=== PATIENT | female | born 1985 | race Caucasian/White ===

== ENCOUNTER 2017-09-24 10:45 | Inpatient (IN) | payer OTHER ==
[~2017-09-24] VITALS: Ht 172.7 cm; Wt 103.4 kg
[2017-10-18] MEDS ORDERED: PRENATAL DHA200 MG PO (00:06)
== END 2017-10-20 12:05 | disposition home or self-care (01) | DRG 775 ==
LOC: OB/GYN 10-17 10:45 → LDR 10-17 23:18 → OB/GYN 10-18 00:26 → LDR 10-18 10:17 → OB/GYN 10-18 20:31
PROC: 4A1HXCZ Monitoring of Products of Conception, Cardiac Rate, External Approach (ICD-10-PCS; 2017-10-17)
PROC: 0KQM0ZZ Repair Perineum Muscle, Open Approach (ICD-10-PCS; principal; 2017-10-18)
PROC: 10E0XZZ Delivery of Products of Conception, External Approach (ICD-10-PCS; 2017-10-18)
DX: O70.1 Second degree perineal laceration during delivery (principal); Z37.0 Single live birth; O48.0 Post-term pregnancy; Z3A.40 40 weeks gestation of pregnancy

== ENCOUNTER → 2017-10-16 | Outpatient (CLI) | payer OTHER ==
[~2017-10-16] MED LIST: PRENATAL DHA200 MG PO
== END | disposition home or self-care (01) ==
LOC: NST 07:53
DX: Z34.03 Encounter for supervision of normal first pregnancy, third trimester (principal)